=== PATIENT | male | born 1950 | race Caucasian/White ===

== ENCOUNTER 2022-02-08 08:38 | Emergency (ER) | payer OTHER ==
[2022-02-08 08:49] VITALS: BP 121/79; PULSE 87; TEMP 97.4; BMI 31.5
== END 2022-02-08 10:44 | disposition home or self-care (01) ==
LOC: JERFT 08:38
DX: M79.604 Pain in right leg (principal)
CPT/HCPCS: 73562-TC-RT-FY; 93971-TC; 99284-25